=== PATIENT | male | born 1980 | race Caucasian/White ===

== ENCOUNTER → 2016-05-03 | Outpatient (CLI) | payer OTHER | LOC: BHSO 13:46 | DX: F43.10 Post-traumatic stress disorder, unspecified (principal) ==

== ENCOUNTER → 2016-05-17 | Outpatient (CLI) | payer OTHER | LOC: BHSO 07:53 | DX: F43.10 Post-traumatic stress disorder, unspecified (principal) ==

== ENCOUNTER → 2016-06-14 | Outpatient (CLI) | payer OTHER | LOC: BHSO 12:53 | DX: F43.10 Post-traumatic stress disorder, unspecified (principal) ==

== ENCOUNTER → 2016-07-19 | Outpatient (CLI) | payer OTHER | LOC: BHSO 14:46 | DX: F43.10 Post-traumatic stress disorder, unspecified (principal) ==

== ENCOUNTER → 2016-08-30 | Outpatient (CLI) | payer OTHER | LOC: BHSO 13:58 | DX: F43.10 Post-traumatic stress disorder, unspecified (principal) ==

== ENCOUNTER → 2017-04-11 | Outpatient (CLI) | payer BC | LOC: BHSO 08:22 | DX: F43.10 Post-traumatic stress disorder, unspecified (principal) | CPT/HCPCS: G0463 ==

== ENCOUNTER → 2017-05-09 | Outpatient (CLI) | payer BC | LOC: BHSO 13:58 | DX: F41.1 Generalized anxiety disorder (principal) ==

== ENCOUNTER → 2017-12-19 | Outpatient (CLI) | payer BC | LOC: BHSO 10:00 | DX: F43.10 Post-traumatic stress disorder, unspecified (principal) | CPT/HCPCS: G0463 ==

== ENCOUNTER 2018-06-23 05:47 | Day surgery (SDC) | payer BC ==
[2018-06-23] VITALS (7 sets, daily range): BP systolic 109–144; BP diastolic 59–707; PULSE 18–83; TEMP 97.9–98.5
[~2018-06-23] VITALS: Ht 162.6 cm; Wt 86.6 kg
[2018-06-23] MEDS ORDERED: NORCO 325 MG-51 TAB PO (06:42)
[2018-06-23] MEDS ORDERED: MOBIC15 MG PO (06:42)
[2018-06-23] MEDS ORDERED: DESYREL 50MG50 MG PO (06:43)
[2018-06-23] MEDS ORDERED: LISINOP/HCTZ TAB 10- PO (06:44)
[2018-06-23] MEDS ORDERED: LIPITOR 40MG TA40 MG PO (06:45)
[2018-06-23] MEDS ORDERED: FLEXERIL 1010 MG/TAB PO (06:46)
[2018-06-23] MEDS ORDERED: PRISTIQ 50 MG T50 MG PO (06:46)
[2018-06-23] MEDS ORDERED: ATARAX 25MG25 MG/TAB PO (06:48)
[2018-06-23] MEDS ORDERED: PROTONIX 40MG T40 MG PO (06:49)
[2018-06-23] MEDS ORDERED: ZANTAC 150MG T150 MG PO (06:50)
--- NOTE | 2018-06-23 08:55 | NUR ---
TO RM 8 PER CART FROM PACU. ALERT ORIENTED X3, TALKING TO AND STAFF. RECEIVED WATER. SUTURES ON PENIS WITHOUT DRAINAGE OR REDNESS. DENIES PAIN OR DISCOMFORT AT THIS TIME. DENIES NAUSEA OR VOMITING.
--- NOTE | 2018-06-23 09:15 | NUR ---
ATE 100% AND TOLERATED WELL RECEIVED 2ND CUP OF WATER.
--- NOTE | 2018-06-23 10:00 | NUR ---
UP AMBULATED TO BATHROOM AND VOIDED. PATIENT STATED URINE WAS PINK AND PENIS NUMB. EXPLAINED FROM LIDO GEL.
--- NOTE | 2018-06-23 10:10 | NUR ---
RECEIVED DISCHARGE INSTRUCTIONS AND VERBALIZED UNDERSTANDING. DISCONTINED IV BY STUDENT.
--- NOTE | 2018-06-23 10:20 | NUR ---
DISCHARGED PER WC BY NURSING STAFF TO PRIVATE CAR IN CARE OF -JENNIFER
== END 2018-06-23 10:25 | disposition home or self-care (01) ==
LOC: SDCO 05:47
DX: B85.1 Pediculosis due to Pediculus humanus corporis (principal); R31.29 Other microscopic hematuria; F17.210 Nicotine dependence, cigarettes, uncomplicated; Z84.1 Family history of disorders of kidney and ureter; Z80.8 Family history of malignant neoplasm of other organs or systems; R39.12 Poor urinary stream; R39.16 Straining to void; R39.11 Hesitancy of micturition; N48.89 Other specified disorders of penis; Z91.048 Other nonmedicinal substance allergy status; I10 Essential (primary) hypertension; K21.9 Gastro-esophageal reflux disease without esophagitis; E78.5 Hyperlipidemia, unspecified
CPT/HCPCS: J0690; J1100; J1885; J2405; J2704; J3010; J7120

== ENCOUNTER → 2018-08-14 | Outpatient (CLI) | payer BC ==
[~2018-08-14] MED LIST: ATARAX 25MG25 MG/TAB PO; DESYREL 50MG50 MG PO; FLEXERIL 1010 MG/TAB PO; LIPITOR 40MG TA40 MG PO; LISINOP/HCTZ TAB 10- PO; MOBIC15 MG PO; NORCO 325 MG-51 TAB PO; PRISTIQ 50 MG T50 MG PO; PROTONIX 40MG T40 MG PO; ZANTAC 150MG T150 MG PO
== END ==
LOC: BHSO 08:34
DX: F43.10 Post-traumatic stress disorder, unspecified (principal)
CPT/HCPCS: G0463

== ENCOUNTER → 2018-09-11 | Outpatient (CLI) | payer BC | LOC: BHSO 08:52 | DX: F43.10 Post-traumatic stress disorder, unspecified (principal) | CPT/HCPCS: G0463 ==

== ENCOUNTER → 2018-12-15 | Outpatient (CLI) | payer BC | LOC: BHSO 10:32 | DX: F90.0 Attention-deficit hyperactivity disorder, predominantly inattentive type (principal) | CPT/HCPCS: G0463 ==

== ENCOUNTER → 2019-03-16 | Outpatient (CLI) | payer BC | LOC: BHSO 10:51 | DX: F90.0 Attention-deficit hyperactivity disorder, predominantly inattentive type (principal) | CPT/HCPCS: G0463 ==

== ENCOUNTER → 2019-05-18 | Outpatient (CLI) | payer BC | LOC: BHSO 09:57 | DX: F43.10 Post-traumatic stress disorder, unspecified (principal) | CPT/HCPCS: G0463 ==

== ENCOUNTER → 2019-11-16 | Outpatient (CLI) | payer BC | LOC: BHSO 09:58 | DX: F43.10 Post-traumatic stress disorder, unspecified (principal) | CPT/HCPCS: G0463 ==